=== PATIENT | male | born 1955 | race Caucasian/White ===

== ENCOUNTER 2017-04-13 02:30 | Emergency (ER) | payer OTHER ==
[~2017-04-13] VITALS: Ht 175.3 cm; Wt 81.6 kg
--- NOTE | ~2017-04-13 | CR108 ---
[facility]. [facility] A Service of [facility] & [facility] RADIOLOGY TEXT RESULTS PATIENT: OPAL KOROMA LOCATION: SED : 51 UNIT #: [id number] AGE: [address]: Ziyad Camacho MD SEX: M ORDER DR: [id number] [place] [id number] E MR#: [id number] Acc #: [id number] NAME: OPAL KOROMA : 1955 SEX: M STUDY DATE/TIME: 04/13/2017 3:02 UNIT: SED ROOM: STUDY DESCRIPTION: CR Finger 2 View 2nd Lt Attending Physician: Ziyad Camacho M.D. Ordering Physician: Ziyad Camacho M.D. Primary Care Physician: Mariano Toribio M.D. MEDICAL IMAGING REPORT This report is preliminary unless electronic signature is present. EXAM Left index finger series 04/13/2017 HISTORY 62-year-old male in the ED complaining of 1-week history of pain and swelling involving the index finger. No reported acute injury. TECHNIQUE Two-view left index finger series. The exam shows diffuse soft tissue swelling of the finger. No visible soft tissue gas or radiopaque soft tissue foreign body. No fracture, arthropathy or other osseous abnormality. IMPRESSION Left index finger diffuse soft tissue swelling. No acute osseous abnormality or visible foreign body. Dictated by... Higinio Pastor M.D. THIS IS AN ELECTRONICALLY VERIFIED REPORT Higinio Pastor M.D. at 04/13/2017 9:58 PM CECY/adilene TD: 04/13/2017 13:43 JOB #: [id number] MEDICAL IMAGING REPORT Page 1 of 1
[~2017-04-13 02:30] MED LIST: ADVAIR 1001 DISK W/D PO; ALBUTEROL17 GM INH; BROMPHED DM PO; DEXAMETHASONE4 MG PO; METHYLPREDNISOLO4 M1 PO; PREDNISONE10 MG PO; TAMIFLU75 M1 PO; TRAMADOL HCL50 M2
[2017-04-13] MEDS ORDERED: BREO ELLIPTA 11 EACH INH (02:48)
== END 2017-04-13 04:12 | disposition home or self-care (01) ==
LOC: SED 02:30
DX: L03.012 Cellulitis of left finger (principal); F17.200 Nicotine dependence, unspecified, uncomplicated; Z79.899 Other long term (current) drug therapy; Z23 Encounter for immunization
CPT/HCPCS: 73140; 90471; 90715; 96372; 99283